=== PATIENT | female | born 1990 | race Caucasian/White ===

== ENCOUNTER 2023-12-02 10:35 | Emergency (ER) | payer OTHER ==
[2023-12-02 11:27] LABS: BASOPHILS # (AUTO) 0.1 10^3/uL (0.0-0.1); BASOPHILS % (AUTO) 0.7 %; EOSINOPHILS # (AUTO) 0.4 10^3/uL (0.0-0.7); HCT - HEMATOCRIT 45.3 % (37.0-47.0); HGB - HEMOGLOBIN 14.5 g/dL (12.0-16.0); LYMPHOCYTES # (AUTO) 2.1 10^3/uL (1.5-3.5); LYMPHOCYTES % (AUTO) 17.6 %; MEAN CORPUSCULAR HEMOGLOBIN 29.2 pg (27.0-31.0); MEAN CORPUSCULAR VOLUME 91.1 fL (81.0-99.0); MEAN PLATELET VOLUME 9.3 fL (7.9-10.8); MONOCYTES # (AUTO) 0.7 10^3/uL (0.0-1.0); MONOCYTES % (AUTO) 6.2 %; NEUTROPHILS # (AUTO) 8.6 10^3/uL (1.5-6.6); NEUTROPHILS % (AUTO) 72.2 %; PLT - PLATELET COUNT 257 10^3/uL (130-450); RED BLOOD COUNT 4.97 10^6/uL (4.20-5.40); WHITE BLOOD COUNT 11.9 x10^3/uL (4.8-10.8)
[2023-12-02 11:45] LABS: ALBUMIN 4.4 g/dL (3.2-5.5); ALBUMIN/GLOBULIN RATIO 1.4 (1.0-2.2); BILIRUBIN,TOTAL 0.6 mg/dL (0.2-1.0); CREATININE 0.7 mg/dL (0.6-1.3); POTASSIUM 4.1 mmol/L (3.5-4.5); TOTAL PROTEIN 7.5 g/dL (6.4-8.9)
--- NOTE | 2023-12-02 12:08 | ED Physician Documentation ---
History of Present Illness - Stated complaint Stated Complaint: SOA/HEAD PX - Chief complaint Chief Complaint: General - History obtained from History obtained from: Patient - Additonal information Additional information: She has been sick for about a month with cough, she had a fever but the last one was about a week ago. She is short of breath and has been having increased migraine frequency with exhaustion. No international travel. She was seen in the clinic and given steroids which were not helpful. PD PAST MEDICAL HISTORY - Past Medical History Past Medical History: Yes Respiratory: Asthma Neuro: Migraines : Kidney stones - Past Surgical History Past Surgical History: No - Present Medications Home Medications: Ambulatory Orders Medication Instructions Recorded Confirmed Albuterol Sulf [Ventolin Hfa 1 - 2 puffs INH Q4HR PRN #1 each 12/02/23 Inhaler] Amoxicillin 1 tab PO TID #30 cap 12/02/23 Benzonatate 1 cap PO TID PRN #15 cap 12/02/23 Sumatriptan Succinate [Imitrex] 100 mg PO BID PRN 12/02/23 12/02/23 - Allergies Allergies/Adverse Reactions: Allergies Allergy/AdvReac Type Severity Reaction Status Date / Time No Known Drug Allergies Allergy Verified 12/02/23 10:53 - Social History Does the pt smoke?: No Smoking Status: Never smoker Does the pt have substance abuse?: No - Immunizations Immunizations are current?: Yes - POLST Patient has POLST: No PD ED PE NORMAL - Vitals Vital signs reviewed: Yes - General General: Alert and oriented X 3, No acute distress - HEENT HEENT: Pharynx benign - Neck Neck: Supple, no meningeal sign, No bony TTP - Cardiac Cardiac: RRR, No murmur - Respiratory Respiratory: No respiratory distress, Other (Wheezy and rhonchorous throughout, nonlabored) - Abdomen Abdomen: Non tender - Derm Derm: No rash - Neuro Neuro: Alert and oriented X 3 Results - Vitals Vitals: Vital Signs - 24 hr 12/02/23 12/02/23 12/02/23 10:46 12:20 13:19 Temperature 36.9 C 36.2 C L Heart Rate 74 83 67 Respiratory 20 18 18 Rate Blood Pressure 147/103 H 135/96 H 126/83 H O2 Saturation 100 100 98 Oxygen O2 Source Room air - Labs Labs: Laboratory Tests 0512/02/23 12/02/23 11:23 11:23 12:47 WBC 11.9 H RBC 4.97 Hgb 14.5 Hct 45.3 MCV 91.1 MCH 29.2 MCHC 32.0 RDW 13.0 Plt Count 257 MPV 9.3 Neut # (Auto) 8.6 H Lymph # (Auto) 2.1 [place] # (Auto) 0.7 Eos # (Auto) 0.4 Baso # (Auto) 0.1 Absolute Nucleated RBC 0.00 Nucleated RBC % 0.0 Sodium 135 Potassium 4.1 Chloride 103 Carbon Dioxide 27 Anion Gap 5.0 L BUN 15 Creatinine 0.7 Estimated GFR (MDRD) 96 Glucose 89 Calcium 10.0 Total Bilirubin 0.6 AST 13 ALT 10 Alkaline Phosphatase 54 Total Protein 7.5 Albumin 4.4 Globulin 3.1 Albumin/Globulin Ratio 1.4 Lipase 37 Urine Color YELLOW Urine Clarity CLEAR Urine pH 6.0 Ur Specific [place] <=1.005 Urine Protein NEGATIVE Urine Glucose (UA) NEGATIVE Urine Ketones NEGATIVE Urine Occult Blood NEGATIVE Urine Nitrite NEGATIVE Urine Bilirubin NEGATIVE Urine Urobilinogen 0.2 (NORMAL) Ur Leukocyte Esterase NEGATIVE Ur Microscopic Review NOT INDICATED Urine Culture Comments NOT INDICATED Urine HCG, Qual NEGATIVE - Rads (name of study) cxr 2v - nl Relevant Findings:: Final report received, EMP independent interpretation of test PD Medical Decision Making - ED course ED course: She is been sick for a month with productive cough, fevers except on the last week, and increased migraine frequency. The description of the headaches is not consistent with anything else, they are intermittent, and she gets very light sensitive and then becomes blind from bright light in both eyes and then it goes away after about 6 hours and its associate with nausea and vomiting. Workup in the emergency department demonstrates a unremarkable chest x-ray, mild elevation of her white blood cell count with unremarkable CMP, urine, and negative testing. She had some relief after Toradol, initially I did not give her any Reglan or Benadryl as I thought she was driving but she corrected me and stated that her will be driving so was administered some Reglan and Benadryl. Given the length of illness and mild leukocytosis, reasonable to trial some antibiotics. Departure - Departure Disposition: 01 Home, Self Care Clinical Impression: Bronchitis Condition: Good Record reviewed to determine appropriate education?: Yes Instructions: ED Upper Resp Infec Abx Tx Prescriptions: Albuterol Sulf [Ventolin Hfa Inhaler] 1 - 2 puffs INH Q4HR PRN #1 each PRN Reason: Shortness Of Air/Wheezing Amoxicillin 1 tab PO TID #30 cap Benzonatate 1 cap PO TID PRN #15 cap PRN Reason: Cough Comments: I sent your prescriptions electronically to the [facility] in [place]. As discussed, the only abnormal finding was a mild elevation in your white count which does go along with an infectious process. As such it is reasonable to trial some antibiotics especially given how long you have been sick. I am also prescribing an inhaler and something for the cough. Call your doctor to arrange a follow-up appointment, make the next available appointment. In the interim, return anytime if worse or if new symptoms develop. Forms: PCP List
[2023-12-02] MEDS: SODIUM CHLORIDE 0.9% 1,000 ML IV STA (12:16)
[2023-12-02] MEDS: KETOROLAC 15 MG/ML VIAL IVP STA (12:16)
--- NOTE | 2023-12-02 12:52 | XRAY Report ---
PROCEDURE: Chest 2V INDICATIONS: cough TECHNIQUE: 2 views of the chest were acquired. COMPARISON: None. FINDINGS: Surgical changes and devices: None. Lungs and pleura: No pleural effusions or pneumothorax. Lungs are clear. Mediastinum: Mediastinal contours appear normal. Heart size is normal. Bones and chest wall: No suspicious bony lesions. Overlying soft tissues appear unremarkable. IMPRESSION: No acute cardiopulmonary process. No focal infiltrates are seen. Reviewed by: Jey Salcido MD on 12/02/2023 11:50 AM BERNA[facility] Approved by: Jey Salcido MD on 12/02/2023 11:50 AM BERNABE Station ID: [id number]
[2023-12-02 13:02] LABS: BILIRUBIN,URINE NEGATIVE (NEGATIVE); CLARITY,URINE CLEAR (CLEAR); GLUCOSE, URINE (UA) NEGATIVE (NEGATIVE); HCG UR QUAL NEGATIVE; KETONES,URINE (UA) NEGATIVE (NEGATIVE); LEUKOCYTE ESTERASE, URINE NEGATIVE (NEGATIVE); NITRITE,URINE NEGATIVE (NEGATIVE); OCCULT BLOOD,URINE NEGATIVE (NEGATIVE); PROTEIN,URINE NEGATIVE (NEGATIVE); UROBILINOGEN,URINE 0.2 (NORMAL) E.U./dL (NORMAL)
[2023-12-02 13:23] VITALS: BP 126/83; O2SAT 98
[2023-12-02] MEDS: METOCLOPRAMIDE 10 MG/2 ML VIAL IVP STA (13:24)
[2023-12-02] MEDS: diphenhydrAMINE INJ 50 MG/ML VIAL IVP STA (13:24)
[2023-12-02] MEDS: diphenhydrAMINE INJ 50 MG/ML VIAL IM STA (13:28)
[2023-12-02] MEDS: METOCLOPRAMIDE 10 MG/2 ML VIAL IM STA (13:28)
== END 2023-12-02 13:40 | disposition home or self-care (01) ==
LOC: ED 10:35
DX: J40 Bronchitis, not specified as acute or chronic (principal); R51.9 Headache, unspecified
CPT/HCPCS: 36415; 71046; 80053; 81003; 81025; 83690; 85025; 96372; 96374; 99284; J1200; J2765; 81001; 87086